=== PATIENT | male | born 1990 | race Caucasian/White ===

== ENCOUNTER 2017-06-24 16:16 | Emergency (ER) | payer MEDICAID | END 2017-06-24 20:08 | disposition home or self-care (01) | LOC: D.ER 16:16 | DX: S51.812A Laceration without foreign body of left forearm, initial encounter (principal); W29.3XXA Contact with powered garden and outdoor hand tools and machinery, initial encounter; Y93.89 Activity, other specified; Y92.019 Unspecified place in single-family (private) house as the place of occurrence of the external cause; F17.200 Nicotine dependence, unspecified, uncomplicated ==

== ENCOUNTER 2017-07-03 14:28 | Emergency (ER) | payer MEDICAID | END 2017-07-03 16:46 | disposition home or self-care (01) | LOC: D.ER 14:28 | DX: S51.812D Laceration without foreign body of left forearm, subsequent encounter (principal); X58.XXXD Exposure to other specified factors, subsequent encounter; Y92.019 Unspecified place in single-family (private) house as the place of occurrence of the external cause; Z48.02 Encounter for removal of sutures ==

== ENCOUNTER 2018-02-24 21:45 | Emergency (ER) | payer MEDICAID ==
[~2018-02-24] VITALS: Ht 198.1 cm; Wt 172.7 kg
[2018-02-24 21:50] VITALS: Ht 198.1 cm; Wt 172.7 kg
[2018-02-24] MEDS ORDERED: AUGMENTIN 875-11 TAB PO (22:12)
[2018-02-24] MEDS ORDERED: CORTISPORIN OTI10 M1 LEFT EAR (22:12)
[2018-02-24] MEDS ORDERED: TOPROL XL100 MG PO (22:28)
[2018-02-24 23:01] VITALS: BP 177/102
== END 2018-02-24 23:02 | disposition home or self-care (01) ==
LOC: D.ER 21:45
DX: H66.91 Otitis media, unspecified, right ear (principal); I10 Essential (primary) hypertension; H60.92 Unspecified otitis externa, left ear; F17.200 Nicotine dependence, unspecified, uncomplicated